=== PATIENT | female | born 1955 | race Caucasian/White ===

== ENCOUNTER → 2017-12-11 | Outpatient (CLI) | payer OTHER | LOC: MAMMO 11:12 → RAD 11:30 → MAMMO 11:30 | DX: Z12.31 Encounter for screening mammogram for malignant neoplasm of breast (principal) ==

== ENCOUNTER → 2018-12-16 | Outpatient (CLI) | payer MEDICARE, OTHER | LOC: RAD 10:25 | DX: Z13.820 Encounter for screening for osteoporosis (principal) ==

== ENCOUNTER → 2018-12-16 | Outpatient (CLI) | payer MEDICARE, OTHER | LOC: MAMMO 10:22 | DX: Z12.31 Encounter for screening mammogram for malignant neoplasm of breast (principal) ==

== ENCOUNTER → 2021-09-19 | Outpatient (CLI) | payer MEDICARE, OTHER | LOC: RAD 15:24 | DX: Z13.820 Encounter for screening for osteoporosis (principal) ==

== ENCOUNTER → 2021-09-19 | Outpatient (CLI) | payer MEDICARE, OTHER | LOC: MAMMO 15:09 | DX: Z12.31 Encounter for screening mammogram for malignant neoplasm of breast (principal); Z13.820 Encounter for screening for osteoporosis ==

== ENCOUNTER → 2023-07-24 | Outpatient (CLI) | payer MEDICARE, OTHER | LOC: RAD 13:36 | DX: Z01.818 Encounter for other preprocedural examination (principal) ==

== ENCOUNTER 2023-08-26 09:50 | Outpatient (RCR) | payer MEDICARE, OTHER | END 2023-09-19 | disposition home or self-care (01) | LOC: PT | DX: M22.2X1 Patellofemoral disorders, right knee (principal) ==

== ENCOUNTER 2023-09-20 08:00 | Outpatient (RCR) | payer MEDICARE, OTHER | END 2023-10-18 13:15 | disposition home or self-care (01) | LOC: PT 08:00 | DX: M22.2X1 Patellofemoral disorders, right knee (principal); Z96.651 Presence of right artificial knee joint ==

== ENCOUNTER → 2024-02-25 | Outpatient (CLI) | payer MEDICARE, OTHER | LOC: MAMMO 07:44 | DX: N63.11 Unspecified lump in the right breast, upper outer quadrant (principal); N63.15 Unspecified lump in the right breast, overlapping quadrants; R59.9 Enlarged lymph nodes, unspecified ==